=== PATIENT | female | born 2000 ===

== ENCOUNTER 2024-07-26 06:55 | Outpatient (REF) | payer OTHER, SELFPAY ==
--- NOTE | ~2024-07-26 | US_ITS ---
CLINICAL HISTORY: RT ANTERIOR NECK LYMPHNODES US neck nonvascular Comparison: None Findings: Sonographic evaluation in the area of clinical concern right anterior neck demonstrated 2 dominant cervical lymph nodes along the sternocleidomastoid muscle demonstrating reniform shape cortical thickening without cortical disruption and normal central flow probable reactive cervical lymph nodes these measure 3.3 x 2.0 x 0.9 cm and 2.5 x 1.6 x 0.8 cm follow-up until resolution. Impression: Enlarged cervical lymph nodes on the right in the area of clinical concern may be reactive follow-up ultrasound until resolution is recommended. This document has been electronically signed by: Saman Andrews MD on 07/27/2024 09:28:08
--- OUTSIDE RECORDS SUMMARY | 2024-07-26 06:58 | XMS_ITS ---
Author Name [facility] Organization Unknown Results Test Name/Text Value Interpretation Date Range Source Hemoglobin A1c/Hemoglobin.total in Blood 5.6% [id number] 4.8 - 5.6 ENS_ZEUSPC[facility] Hemoglobin A1c/Hemoglobin.total in Blood 5.6% [id number] 4.8 - 5.6 E[facility] Hemoglobin A1c/Hemoglobin.total in Blood 4.9% [id number] 4.8 - 5.6 E[facility] Hemoglobin A1c/Hemoglobin.total in Blood 5.6% [id number] 4.8 - 5.6 ENS_[facility] Hemoglobin A1c/Hemoglobin.total in Blood 5.6% [id number] 4.8 - 5.6 ENS_[facility] Hemoglobin A1c/Hemoglobin.total in Blood 4.9% [id number] 4.8 - 5.6 [facility] Hemoglobin A1c/Hemoglobin.total in Blood 5.6% [id number] 4.8 - 5.6 [facility] Hemoglobin A1c/Hemoglobin.total in Blood 4.9% [id number] 4.8 - 5.6 [facility] Hemoglobin A1c/Hemoglobin.total in Blood 5.6% [id number] 4.8 - 5.6 [facility] Hemoglobin A1c/Hemoglobin.total in Blood 4.9% [id number] 4.8 - 5.6 [facility] Hemoglobin A1c/Hemoglobin.total in Blood 5.6% [id number] 4.8 - 5.6 [facility] Hemoglobin A1c/Hemoglobin.total in Blood 4.9% [id number] 4.8 - 5.6 [facility] Hemoglobin A1c/Hemoglobin.total in Blood 4.9% [id number] 4.8 - 5.6 [facility] Hemoglobin A1c/Hemoglobin.total in Blood 4.9% 4.8 - 5.6 [facility] Hemoglobin A1c/Hemoglobin.total in Blood 4.9% 4.8 - 5.6 [facility] Hemoglobin A1c/Hemoglobin.total in Blood 4.9% 4.8 - 5.6 [facility] Hemoglobin A1c/Hemoglobin.total in Blood 4.9% 4.8 - 5.6 [facility] Hemoglobin A1c/Hemoglobin.total in Blood 4.9% 4.8 - 5.6 [facility] Hepatitis B virus surface Ab Reactive Normal [id number] [facility] History of Medication Use Medication Directions Dispensed Refills Start Date End Date Status albuterol sulfate HFA 90 mcg/actuation aerosol inhaler albuterol sulfate HFA 90 mcg/actuation aerosol inhaler completed amoxicillin 500 mg tablet amoxicillin 500 mg tablet completed amoxicillin 500 mg tablet Take 1 tablet every 12 hours by oral route for 10 days. Take 1 tablet every 12 hours by oral route for 10 days. completed ergocalciferol (vitamin D2) 1,250 mcg (50,000 unit) capsule ergocalciferol (vitamin D2) 1,250 mcg (50,000 unit) capsule completed ergocalciferol (vitamin D2) 1,250 mcg (50,000 unit) capsule Take 1 capsule every week by oral route for 90 days. Take 1 capsule every week by oral route for 90 days. completed lisdexamfetamine 30 mg capsule TAKE 1 CAPSULE BY MOUTH ONCE A DAY FOR 30 DAYS TAKE 1 CAPSULE BY MOUTH ONCE A DAY FOR 30 DAYS completed lisdexamfetamine 30 mg capsule Take 1 capsule every day by oral route for 30 days. Take 1 capsule every day by oral route for 30 days. completed Medrol (Jame) 4 mg tablets in a dose pack Take 6 tabs day 1, 5 tabs day 2, 4 tabs day 3, 3 tabs day 4, 2 tabs day 5, 1 tab day 6 Take 6 tabs day 1, 5 tabs day 2, 4 tabs day 3, 3 tabs day 4, 2 tabs day 5, 1 tab day 6 Take 6 tabs day 1, 5 tabs day 2, 4 tabs day 3, 3 tabs day 4, 2 tabs day 5, 1 tab day 6 completed Problems Problem Status Onset Date Problem Type Date of Resolution Source Red blood cell count below reference range active 2023-03-26 ProblemAct E[facility]_M[facility] Ketonuria active 2023-10-12 ProblemAct [employer] Hypercholesterolemia active 2023-03-26 ProblemAct ENS_MAL[facility] Iron deficiency anemia active 2024-04-19 ProblemAct ENS_MALCAS Attention deficit hyperactivity disorder active 2023-02-11 ProblemAct ENS_Z EUSPCAS Enlarged tonsil active 2024-04-19 ProblemAct EN S_OMEGAUSPCAS Upper respiratory infection active 2023-12-07 ProblemAct ENS_MAL[facility] Acute pharyngitis active 2024-04-05 ProblemAct ENS_MAL[facility] Hypertriglyceridemia active 2023-04-16 ProblemAct ENS_MAL[facility] Microcytic anemia active 2023-10-12 ProblemAct E[facility] Hemoglobin below reference range active 2023-03-26 ProblemAct ENS_M[facility] Cobalamin deficiency active 2023-10-12 ProblemAct ENS_MALCAS Fatigue active 2024-06-23 ProblemAct ENS_HAILE [employer] Serum creatinine below reference range active 2023-10-12 ProblemAct ENS_M[facility] Anemia active 2024-04-18 ProblemAct ENS_HAILE UGARTES Essential hypertension active 2023-07-07 ProblemAct E[facility] Generalized anxiety disorder active 2023-02-11 ProblemAct [facility] Vitamin D deficiency active 2023-10-12 ProblemAct E[facility] Nasal congestion active 2023-04-16 ProblemAct E NS_[facility] Immunizations Vaccine Date Source Lot Number Status Hep B, adolescent or pediatric - ML 04/03/2022 ENS_OMEGAUSPCA S [id number] completed COVID-19, mRNA, LNP-S, bival ent booster, PF, 30 mcg/0.3 mL dose ([employer]) - ML 03/18/2022 ENS_OMEGAOTTOCAS [id number] completed influenza, injectable, quadr ivalent, preservative free - ML 03/18/2022 ENS_MAL[facility] [id number] completed meningococcal B, OMV - ML 11/05/2020 ENS_MAL[facility] [id number] completed meningococcal B, OMV - ML 10/03/2020 ENS_MAL[facility] [id number] completed Tdap - ML 10/03/2020 ENS_ALS [id number] completed COVID-19, mRNA, LNP-S, PF, 3 0 mcg/0.3 mL dose ([employer]) - ML 07/09/2020 ENS_ALS [id number] comp leted COVID-19, mRNA, LNP-S, PF, 3 0 mcg/0.3 mL dose (Pfizer-BioNTech) - ML 06/17/2020 ENS_MALCAS [id number] comp leted influenza, unspecified formulation - ML 12/19/2019 [facility] [place] [id number] completed influenza, injectable, quadr ivalent, preservative free - ML 02/23/2019 ENS_ALS [id number] completed meningococcal MCV4O - ML 09/14/2018 ENS_ALS [id number] completed influenza, injectable, quadr ivalent, preservative free - ML 12/09/2017 ENS_ALS [id number] completed influenza, unspecified formulation - ML 02/23/2017 [facility] [id number] completed influenza, injectable, quadr ivalent, preservative free - ML 01/29/2016 ENS_ALS [id number] completed HPV, unspecified formulation - ML 07/24/2014 ENS_MALCAS [id number] completed HPV, unspecified formulation - ML 11/17/2013 ENS_MALCAS [id number] completed HPV, unspecified formulation - ML 08/04/2013 ENS_MALCAS [id number] completed meningococcal MCV4P - ML 08/04/2013 ENS_MALCAS [id number] completed Tdap - ML 08/04/2013 ENS_MALCAS [id number] completed Hep A, unspecified formulation - ML 07/08/2012 ENS_OMEGAOTTOCA S [id number] completed influenza, unspecified formulation - ML 03/30/2012 ENS_OMEGA SPCAS [id number] completed Hep A, unspecified formulation - ML 02/17/2011 ENSHANANECA S HEP completed influenza, unspecified formulation - ML 02/17/2011 ENS_ZEU SPCAS FLUMIST completed influenza, unspecified formulation - ML 02/25/2007 ENS_ZEU SPCAS completed DTaP, unspecified formulation - ML 07/17/2006 ENS_ZEUSPCAS completed IPV - ML 07/17/2006 ENS_ZEUSPC[facility] completed MMR - ML 07/17/2006 ENS_ZE[facility]PC[facility] completed varicella - ML 07/17/2006 ENS_ZEUS[facility]AS complete d DTaP, unspecified formulation - ML 09/27/2003 ENS_ZE[facility] completed Hib, unspecified formulation - ML 09/27/2003 ENS_ZEUSPCAS completed IPV - ML 09/27/2003 ENS_ZEUSPCAS completed MMR - ML 06/30/2003 ENS_ZE[facility] completed pneumococcal conjugate PCV 7 - ML 06/30/2003 ENS_ZEUSPCAS completed varicella - ML 06/30/2003 ENS_ZE[facility] complete d DTaP, unspecified formulation - ML 2002 ENS_ZEUSPCAS completed Hep B, unspecified formulation - ML 2002 ENS_ZEUSPCA S completed Hib, unspecified formulation - ML 2002 ENS_ZEUSPCAS completed IPV - ML 2002 ENS_ZE[facility] completed DTaP, unspecified formulation - ML 2002 ENS_[facility] completed Hib, unspecified formulation - ML 2002 ENS_ZEUSPCAS completed IPV - ML 2002 ENS_ZEUSPCAS completed DTaP, unspecified formulation - ML 2002 ENS_ZEUS[facility] completed Hib, unspecified formulation - ML 2002 ENS_[facility]US[facility] completed IPV - ML 2002 ENS_[facility] completed pneumococcal conjugate PCV 7 - ML 2002 ENS_[facility] completed Hep B, unspecified formulation - ML 2002 ENS_ZEUSPCA S completed Hep B, unspecified formulation - ML 2002 ENS_ZEUSPCA S completed Assessment and Plan ID Update Date Source Alert Text [place] [facility] - [id number] 03/18/2022 [place] [facility] - [id number] COVID Vaccination: This patient has received the PFR, COV-19,mRNA,LNP-S,PF,30-0. 3,Bivalent vaccination on 03/18/2022 with lot number [id number] at [facility]. [place] [facility] - [id number] 07/09/2020 [place] [facility] - [id number] COVID Vaccination: This patient has received the PFR, COVID-19, mRNA, LNP-S, PF, 0.3mL vaccination on 07/09/2020 with lot number [id number] at [facility]. [place] [facility] - [id number] 06/17/2020 [place] [facility] - [id number] COVID Vaccination: This patient has received the PFR, COVID-19, mRNA, LNP-S, PF, 0.3mL vaccination on 06/17/2020 with lot number [id number] at [facility]. Health Concerns ID Update Date Source Alert Text 06/17/2024 UAACO HYPERTENSION; A nemia; Hyperlipidemia 04/08/2021 [id number] COVID-19 Virus Positive: This patient had positive viral testing for SARS-CoV-2 on 2021-04-04 15:00:00 as reported by the [place] Department of Health. Patients at risk for serious illness may be eligible to receive Monoclonal Antibody treatment under the FDA's EUA guidelines. Treatment may reduce severity of illness and help them stay out of the hospital. Make a referral to an infusion site through the CRISP eReferral tool. Encounters Encounter Type Encounter Reason Primary Diagnosis Location Date Ambulatory [facility] 07/21/2024 [facility] 06/23/2024 [facility] 04/20/2024 [facility] 04/18/2024 [facility] 03/27/2024 [facility] 03/18/2024 [facility] 11/30/2023 [facility] 10/26/2023 [facility] 08/11/2023 [facility] 07/20/2023 [facility] 06/15/2023 [facility] 05/22/2023 [facility] 04/16/2023 [facility] 04/16/2023 [facility] 03/26/2023 [facility] 02/11/2023 [facility] 01/26/2023 Care Team Organization Name Specialty Phone Email Start Date End Da te [facility] [employer] ESTHER STEWART Primary Care [email or web address] 04/11/2024 [facility] ESTHER STEWART Primary Care [email or web address] 03/26/2024 5 [facility] ([employer]et[employer]) ANNETTE ELKINS Internal Medicine [place]AG[place] 08/05/2023 [facility], [facility] 04/28/2023 [facility], [facility] ESTHER STEWART Primary Care [email or web address] 02/17/2022 [employer] ESTHER STEWART Primary Care [email or web address] 01/31/2022 4 [facility] 06/17/2020 1 [facility] NATHALIE TO Primary Care
--- OUTSIDE RECORDS SUMMARY | 2024-07-26 06:58 | XMS_ITS | Clinical Summary ---
Author Organization [facility] ([facility]) Address [address] [place] [address] Care Team Providers Care Rfid Engineer Name Role Phone Unavailable Primary Care Provider Unavailabl e Immunizations Immunization Administration Dates Next Due PFIZER COVID-19 MONOVALENT VACCINE-AGES 12+ YRS 07/09/2020,06/17/2020 Social History Tobacco Use Types Packs/Day Years Used Date Smoking Tobacco: Never Assessed Comments Unknown Sex and Gender Information Value Date Recorded Sex Assigned at Not on file Legal Sex Female 9:14 AM EDT Gender Identity Not on file Sexual Orientation Not on file Plan of Treatment Health Maintenance Due Date Last Done Comments Annual Alcohol and Substance Abuse Screening (SBIRT) 03/23/2023 Cervical Cancer Screening - Pap Smear 06/29/2023 Flu Vaccination - Adult 10/22/2023 02/24/20, 12/09/2017, 01/29/2016 COVID-19 Vaccine (2023-2 5 season) 2023 07/09/2020, 06/17/2020 Pneumococcal Vaccine: Pediatrics (0 to 5 Years) and At-Risk Patients (6 to 49 Years) Aged Out No longer eligible b ased on patient's age to complete this topic
--- OUTSIDE RECORDS SUMMARY | 2024-07-26 06:58 | XMS_ITS ---
Author Name [facility] Organization Unknown Results Test Name/Text Value Interpretation Date Range Source Hemoglobin A1c/Hemoglobin.total in Blood 5.6% [id number] 4.8 - 5.6 [facility] Hemoglobin A1c/Hemoglobin.total in Blood 5.6% [id number] 4.8 - 5.6 [facility] Hemoglobin A1c/Hemoglobin.total in Blood 4.9% [id number] 4.8 - 5.6 [facility] Hemoglobin A1c/Hemoglobin.total in Blood 5.6% [id number] 4.8 - 5.6 [facility] Hemoglobin A1c/Hemoglobin.total in Blood 5.6% [id number] 4.8 - 5.6 [facility] Hemoglobin A1c/Hemoglobin.total in Blood 4.9% 746011089744 4.8 - 5.6 [facility] Hemoglobin A1c/Hemoglobin.total in Blood 5.6% [id number] 4.8 - 5.6 [facility] Hemoglobin A1c/Hemoglobin.total in Blood 4.9% 671873132105 4.8 - 5.6 [facility] Hemoglobin A1c/Hemoglobin.total in Blood 5.6% 776341309810 4.8 - 5.6 [facility] Hemoglobin A1c/Hemoglobin.total in Blood 4.9% [id number] 4.8 - 5.6 [facility] Hemoglobin A1c/Hemoglobin.total in Blood 5.6% [id number] 4.8 - 5.6 [facility] Hemoglobin A1c/Hemoglobin.total in Blood 4.9% [id number] 4.8 - 5.6 [facility] Hemoglobin A1c/Hemoglobin.total in Blood 4.9% [id number] 4.8 - 5.6 [facility] Hemoglobin A1c/Hemoglobin.total in Blood 4.9% 4.8 - 5.6 [facility] Hemoglobin A1c/Hemoglobin.total in Blood 4.9% 4.8 - 5.6 [facility] Hemoglobin A1c/Hemoglobin.total in Blood 4.9% 4.8 - 5.6 [facility] Hemoglobin A1c/Hemoglobin.total in Blood 4.9% 4.8 - 5.6 E[facility] Hemoglobin A1c/Hemoglobin.total in Blood 4.9% 4.8 - 5.6 E[facility] Hepatitis B virus surface Ab Reactive Normal [id number] [facility] History of Medication Use Medication Directions [...] ProblemAct ENS_MALCAS Ketonuria active 2023-10-12 ProblemAct [employer] TECH[employer]ICIAN Hypercholesterolemia active 2023-03-26 ProblemAct ENS_MAL[facility] Iron deficiency [...] ProblemAct ENS_MALCAS Fatigue active 2024-06-23 ProblemAct 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 Serum creatinine below reference range active 2023-10-12 ProblemAct ENS_MALCAS Anemia active 2024-04-18 ProblemAct ENS_HAILE UGARTES Essential hypertension active 2023-07-07 ProblemAct ENS_MALCAS Generalized anxiety disorder active 2023-02-11 ProblemAct E[facility]_M[facility] Vitamin D deficiency active 2023-10-12 ProblemAct ENS_MALCAS Nasal congestion active 2023-04-16 ProblemAct E NS_ZEUSPCAS Immunizations Vaccine Date Source Lot Number Status Hep B, adolescent or pediatric - ML 04/03/2022 ENS_OMEGAUSPCA S [id number] completed COVID-19, mRNA, LNP-S, bival ent booster, PF, 30 mcg/0.3 mL dose ([employer]) - ML 03/18/2022 ENS_OMEGAOTTOCAS [id number] completed influenza, injectable, quadr ivalent, preservative free - ML 03/18/2022 ENS_MALCAS [id number] completed meningococcal B, OMV - ML 11/05/2020 ENS_MALCAS [id number] completed meningococcal B, OMV - ML 10/03/2020 ENS_MALCAS [id number] completed Tdap - ML 10/03/2020 ENS_ALS [id number] completed COVID-19, mRNA, LNP-S, PF, 3 0 mcg/0.3 mL dose ([employer]) - ML 07/09/2020 ENS_ALS [id number] comp leted COVID-19, mRNA, LNP-S, PF, 3 0 mcg/0.3 mL dose (Pfizer-BioNTech) - ML 06/17/2020 ENS_MALCAS [id number] comp leted influenza, unspecified formulation - ML 12/19/2019 ENS_[facility] [id number] completed influenza, injectable, quadr ivalent, preservative free - ML 02/23/2019 ENS_ALS [id number] completed meningococcal MCV4O - ML 09/14/2018 ENS_ALS [id number] completed influenza, injectable, quadr ivalent, preservative free - ML 12/09/2017 ENS_ALS [id number] completed influenza, unspecified formulation - ML 02/23/2017 [facility] [id number] completed influenza, injectable, quadr ivalent, preservative free - ML 01/29/2016 ENS_ALS [id number] completed HPV, unspecified formulation - ML 07/24/2014 ENS_MALCAS [id number] completed HPV, unspecified formulation - ML 11/17/2013 ENS_MALCAS [id number] completed HPV, unspecified formulation - ML 08/04/2013 ENS_MALCAS [id number] completed meningococcal MCV4P - ML 08/04/2013 ENS_MALCAS [id number] completed Tdap - ML 08/04/2013 ENS_MALCAS [id number] completed Hep A, unspecified formulation - ML 07/08/2012 ENS_OMEGAOTTOCA S [id number] completed influenza, unspecified formulation - ML 03/30/2012 ENS_OMEGA SPCAS [id number] completed Hep A, unspecified formulation - ML [...] Plan ID Update Date Source Alert Text [place] [facility] - [id number] 03/18/2022 [place] [facility] - [id number] COVID Vaccination: This patient has received the PFR, COV-19,mRNA,LNP-S,PF,30-0. 3,Bivalent vaccination on 03/18/2022 with lot number [id number] at [facility]. [place] [facility] - [id number] 07/09/2020 [place] [facility] - [id number] COVID Vaccination: This patient has received the PFR, COVID-19, mRNA, LNP-S, PF, 0.3mL vaccination on 07/09/2020 with lot number [id number] at [facility]. [place] [facility] - [id number] 06/17/2020 [place] [facility] - [id number] COVID Vaccination: This patient has received the PFR, COVID-19, mRNA, LNP-S, PF, 0.3mL vaccination on 06/17/2020 with lot number [id number] at [facility]. Health Concerns ID Update Date Source Alert Text 06/17/2024 UAACO HYPERTENSION; A nemia; Hyperlipidemia 04/08/2021 [id number] COVID-19 Virus Positive: This patient had positive viral testing for SARS-CoV-2 on 2021-04-04 15:00:00 as reported by the [place] Department of Health. Patients at risk for [...] Phone Email Start Date End Da te [facility] [employer] ESTHER STEWART Primary Care [email or web address] 04/11/2024 [facility] [employer] ESTHER STEWART Primary Care [email or web address] 03/26/2024 5 [facility] ([employer]) ANNETTE ELKINS Internal Medicine SAGAR 08/05/2023 [facility], [facility] 04/28/2023 [facility] [place], [facility] ESTHER STEWART Primary Care [email or web address] 02/17/2022 [employer] ESTHER STEWART Primary Care [email or web address] 01/31/2022 4 [facility] 06/17/2020 1 [facility] NATHALIE TO Primary Care
--- OUTSIDE RECORDS SUMMARY | 2024-07-26 06:58 | XMS_ITS | Referral Summary ---
Author Organization [facility] ([facility]) Address [address] [place] [address] Care Team Providers Care Mfts Name Role Phone Unavailable Primary Care Provider [...] Orientation Not on file Plan of Treatment Not on file
== END 2024-07-26 06:56 | disposition home or self-care (01) ==
LOC: HO.UMASIMG 06:55
PROVIDERS: Visit Provider Emergency Medicine
DX: J02.9 Acute pharyngitis, unspecified (principal); R59.0 Localized enlarged lymph nodes
CPT/HCPCS: 76536

== ENCOUNTER → 2024-07-26 13:00 | Outpatient (BNV) | payer OTHER, SELFPAY | PROVIDERS: Visit Provider Radiology Diagnostic Radiology | DX: R59.0 Localized enlarged lymph nodes (principal) | CPT/HCPCS: 76536 ==